=== PATIENT | female | born 1990 | race Caucasian/White ===

== ENCOUNTER → 2017-05-16 | Outpatient (CLI) | payer MEDICAID ==
[2017-05-16 11:32] LABS: URINE BILIRUBIN - DIPSTICK NEGATIVE (NEG); URINE BLOOD TRACE-INTACT (NEG)
[2017-05-16 12:50] LABS: BUN 10 mg/dL (7-18)
[2017-05-16 12:58] LABS: GFR (ESTIMATED) 120 ML/MIN (59-)
[2017-05-16 13:10] LABS: HEMOGLOBIN 12.2 g/dL (12.2-16.2)
[2017-05-16 13:11] LABS: LYMPH # 1.6 K/mm3 (0.7-4.5); LYMPH % 34.6 % (10-50.0)
[2017-05-16 14:11] LABS: ABO BLOOD TYPE A; RH BLOOD TYPE POSITIVE
[2017-05-17 08:43] LABS: HBsAg Screen Negative (Negative); HIV Screen 4th Generation wRfx Non Reactive (Non Reactive); Hep A Ab, IgM Negative (Negative); Hep B Core Ab, IgM Negative (Negative); Hep C Virus Ab <0.1 (0.0-0.9); Rapid Plasma Reagin, Quant Non Reactive (NonRea<1:1)
== END ==
LOC: LAB 09:54
PROVIDERS: Nurse Practitioner Family
DX: Z00.00 Encounter for general adult medical examination without abnormal findings (principal)
CPT/HCPCS: G0432

== ENCOUNTER → 2017-06-03 | Outpatient (CLI) | payer OTHER, MEDICAID ==
[2017-06-03 10:33] LABS: HEMOGLOBIN 12.3 g/dL (12.2-16.2); LYMPH # 1.8 K/mm3 (0.7-4.5); LYMPH % 45.4 % (10-50.0)
[2017-06-03 12:29] LABS: BUN 9 mg/dL (7-18)
[2017-06-03 12:31] LABS: GFR (ESTIMATED) 120 ML/MIN (59-)
[2017-06-03 13:20] LABS: AMPHETAMINES/METAMPHETAMINES NEGATIVE ng/mL (<1000)
== END ==
LOC: LAB 10:22
PROVIDERS: Nurse Practitioner Family
DX: R79.89 Other specified abnormal findings of blood chemistry (principal); R94.5 Abnormal results of liver function studies; Z00.00 Encounter for general adult medical examination without abnormal findings